=== PATIENT | female | born 2000 | race Two or more races ===

== ENCOUNTER 2023-04-01 15:33 | Inpatient (IN) | payer OTHER ==
[~2023-04-01] VITALS: Ht 165.1 cm; Wt 84.9 kg
[2023-04-01] MEDS ORDERED: HYDROcodone-ACET 5/325MG TAB PO PRN (19:30)
[2023-04-01] MEDS ORDERED: MORPHINE SULFATE INJ 2 MG/ml SYRG IV PRN (19:30)
[2023-04-01] MEDS ORDERED: ACETAMINOPHEN 325 MG TAB PO PRN (19:30)
[2023-04-01] MEDS ORDERED: NITROGLYCERIN 0.4 MG SL TAB SL PRN (19:30)
[2023-04-01] MEDS ORDERED: DOCUSATE SOD 100 MG CAP PO PRN (19:30)
[2023-04-01 19:42] VITALS: BP 118/65; PULSE 110; RESP 18; TEMP 98.1; O2SAT 97
[2023-04-01 20:00] VITALS: PULSE 110; RESP 18; O2SAT 97
[2023-04-01 20:20] LABS: Basophils # (auto) 0 10 ^3/uL (0-0.2); Basophils % (auto) 0.2 % (0.0-2.0); Eosinophils # (auto) 0 10 ^3/uL (0-0.8); Eosinophils % (auto) 0.3 % (0.0-7.0); Hematocrit 34.8 % (36.0-46.0); Hemoglobin 11.6 g/dL (12.2-16.2); Lymphocytes # (auto) 3.6 10 ^3/uL (0.4-5.4); Lymphocytes % (auto) 42.7 % (10.0-50.0); Mean Corpuscular Hemoglobin 28.1 pg (28.0-32.0); Mean Corpuscular Hgb Conc. 33.3 g/dL (32.0-36.0); Mean Corpuscular Volume 84.6 fL (80.0-100.0); Monocytes # (auto) 1.3 10 ^3/uL (0-1.3); Monocytes % (auto) 15.4 % (0.0-12.0); Neutrophils # (auto) 3.5 10 ^3/uL (1.6-8.6); Neutrophils % (auto) 41.4 % (37.0-80.0); Nucleated Red Blood Cells % 0.1 %; Red Blood Cells 4.11 10^6/uL (4.0-5.20); Red Cell Distribution Width 12.9 % (11.8-14.3); White Blood Cell 8.4 10^3/uL (4.4-10.8)
[2023-04-01 20:40] LABS: Alanine Aminotransferase 23 U/L (7-40); Albumin 3.4 g/dL (3.2-4.8); Alkaline Phosphatase 51 U/L (46-116); Anion Gap 7 (5-15); Aspartate Aminotransferase 16 U/L (13-40); BUN/Creatinine Ratio 31.3 (10.0-20.0); Bilirubin, Total 0.8 mg/dL (0.2-1.0); Blood Urea Nitrogen 15 mg/dL (9-23); Calcium 9.1 mg/dL (8.7-10.4); Carbon Dioxide 25 mmol/L (20-30); Chloride 107 mmol/L (98-107); Glucose 97 mg/dL (74-106); Potassium 3.8 mmol/L (3.5-5.1); Sodium 139 mmol/L (136-145); Total Protein 5.3 g/dL (5.7-8.2)
[2023-04-01 22:00] VITALS: BP 115/55; PULSE 107; RESP 18; TEMP 97.9; O2SAT 99
[2023-04-01] MEDS: IBUPROFEN 600 MG TAB PO SCH (22:00)
[2023-04-01] MEDS: COLCHICINE 0.6 MG CAP PO SCH (22:00)
[2023-04-01] MEDS: ENOXAPARIN SOD 100 MG/1 ML SYRINGE SC SCH (22:00)
[2023-04-02] VITALS (8 sets, daily range): BP systolic 106–124; BP diastolic 51–64; PULSE 90–130; RESP 16–18; TEMP 97.7–98; O2SAT 96–99
[2023-04-02 05:48] LABS: Hematocrit 33.4 % (36.0-46.0); Hemoglobin 11.1 g/dL (12.2-16.2); Mean Corpuscular Hemoglobin 28.5 pg (28.0-32.0); Mean Corpuscular Hgb Conc. 33.3 g/dL (32.0-36.0); Mean Corpuscular Volume 85.4 fL (80.0-100.0); Red Blood Cells 3.91 10^6/uL (4.0-5.20); Red Cell Distribution Width 12.7 % (11.8-14.3); White Blood Cell 4.8 10^3/uL (4.4-10.8)
[2023-04-02] MEDS: IBUPROFEN 600 MG TAB PO SCH ×3 (06:00→21:55)
[2023-04-02 06:02] LABS: Band Neutrophils % (manual) 0; Basophils % (manual) 0 (0.0-2.0); Blast Cells 0; Eosinophils % (manual) 0 (0-7); Metamyelocytes % 0; Myelocytes % 0; Promyelocytes % 0
[2023-04-02 06:14] LABS: Alanine Aminotransferase 22 U/L (7-40); Albumin 3.5 g/dL (3.2-4.8); Alkaline Phosphatase 47 U/L (46-116); Anion Gap 8 (5-15); Aspartate Aminotransferase 22 U/L (13-40); BUN/Creatinine Ratio 21.3 (10.0-20.0); Blood Urea Nitrogen 10 mg/dL (9-23); Calcium 9.4 mg/dL (8.5-10.1); Carbon Dioxide 25 mmol/L (20-30); Chloride 108 mmol/L (98-107); Cholesterol 81 mg/dL (< 200); Glucose 84 mg/dL (74-106); HDL Cholesterol 41 mg/dL (40-59); LDL Cholesterol 23 mg/dL (< 100); Potassium 3.8 mmol/L (3.5-5.1); Sodium 141 mmol/L (136-145); Triglycerides 86 mg/dL (< 150)
[2023-04-02 06:15] LABS: Total Protein 5.5 g/dL (5.7-8.2)
[2023-04-02 07:27] LABS: Lymphocytes % (manual) 56 (10.0-50.0); Monocytes % (manual) 14 (0-12); Reactive Lymphocytes 4
[2023-04-02 07:28] LABS: Platelet Estimate Adequate
[2023-04-02 09:26] LABS: Erythrocyte Sedimentation Rate 12 mm/hr (0-20)
[2023-04-02] MEDS: ENOXAPARIN SOD 100 MG/1 ML SYRINGE SC SCH ×2 (10:20→21:55)
[2023-04-02] MEDS: COLCHICINE 0.6 MG CAP PO SCH ×2 (10:20→21:55)
[2023-04-02 11:17] LABS: Urine Epithelial Cast None Seen /hpf (<5)
[2023-04-02 11:30] LABS: Urine Bacteria FEW /hpf (None Seen); Urine Blood Negative /uL (Negative); Urine Clarity Clear (Clear); Urine Color Yellow (Yellow); Urine Hyaline Cast FEW /lpf (0 - 2); Urine Protein, UAD TRACE (Negative); Urine Urobilinogen Normal (Negative); Urine WBC 2 /hpf (0 - 5); Urine pH 6.5 (5.0-8.0)
[2023-04-02 11:45] LABS: Amphetamine Screen, Urine Neg (NEGATIVE); Barbiturate Scree,Urine Neg (NEGATIVE); Benzodiazephine Screen, Urine Neg (NEGATIVE); Cannabinoid Screen, Urine Neg (NEGATIVE); Cocaine Screen, Urine Neg (NEGATIVE); Opiate Scree,Urine Neg (NEGATIVE); Phencyclidine Screen, Urine Neg (NEGATIVE)
[2023-04-02] MEDS: ONDANSETRON HCL 4 MG/2 ML VIAL IV PRN (20:19)
[2023-04-02] MEDS ORDERED: CARVEDILOL 3.125 MG TAB PO SCH (22:00)
[2023-04-03] VITALS (7 sets, daily range): BP systolic 105–128; BP diastolic 49–69; PULSE 63–95; RESP 17–18; TEMP 97.9–98.4; O2SAT 97–100
[2023-04-03] MEDS: IBUPROFEN 600 MG TAB PO SCH ×3 (05:51→21:02)
[2023-04-03 06:53] LABS: Hematocrit 35.1 % (36.0-46.0); Hemoglobin 11.6 g/dL (12.2-16.2); Mean Corpuscular Hemoglobin 28.2 pg (28.0-32.0); Mean Corpuscular Hgb Conc. 33.1 g/dL (32.0-36.0); Mean Corpuscular Volume 85.2 fL (80.0-100.0); Red Blood Cells 4.12 10^6/uL (4.0-5.20); Red Cell Distribution Width 12.5 % (11.8-14.3); White Blood Cell 5.8 10^3/uL (4.4-10.8)
[2023-04-03 07:08] LABS: Anion Gap 8 (5-15); Carbon Dioxide 25 mmol/L (20-30); Chloride 109 mmol/L (98-107); Potassium 4.1 mmol/L (3.5-5.1); Sodium 142 mmol/L (136-145)
[2023-04-03 07:10] LABS: Calcium 9.6 mg/dL (8.5-10.1)
[2023-04-03 07:14] LABS: BUN/Creatinine Ratio 20.8 (10.0-20.0); Band Neutrophils % (manual) 0; Basophils % (manual) 0 (0.0-2.0); Blast Cells 0; Blood Urea Nitrogen 10 mg/dL (9-23); Glucose 85 mg/dL (74-106); Metamyelocytes % 0; Myelocytes % 0; Promyelocytes % 0
[2023-04-03] MEDS: COLCHICINE 0.6 MG CAP PO SCH ×2 (09:27→21:02)
[2023-04-03] MEDS ORDERED: PANTOPRAZOLE 40 MG TAB PO SCH (10:00)
[2023-04-03 10:23] LABS: Eosinophils % (manual) 1 (0-7); Lymphocytes % (manual) 50 (10.0-50.0); Monocytes % (manual) 12 (0-12); Platelet Estimate Adequate; Reactive Lymphocytes 16
[2023-04-03] MEDS ORDERED: ATENOLOL 25 MG TAB PO ONE (11:00)
[2023-04-03] MEDS ORDERED: methIMAzole 5 MG TAB PO ONE (11:00)
[2023-04-03] MEDS: methIMAzole 5 MG TAB PO SCH (21:02)
[2023-04-04] VITALS (7 sets, daily range): BP systolic 104–113; BP diastolic 55–61; PULSE 67–89; RESP 17–20; TEMP 98–98.3; O2SAT 97–100
[2023-04-04] MEDS: IBUPROFEN 600 MG TAB PO SCH ×3 (06:32→20:50)
[2023-04-04] MEDS: methIMAzole 5 MG TAB PO SCH ×3 (06:33→20:49)
[2023-04-04 09:00] LABS: Basophils # (auto) 0 10 ^3/uL (0-0.2); Basophils % (auto) 0.3 % (0.0-2.0); Eosinophils # (auto) 0.1 10 ^3/uL (0-0.8); Eosinophils % (auto) 2.2 % (0.0-7.0); Hematocrit 39.3 % (36.0-46.0); Hemoglobin 13.3 g/dL (12.2-16.2); Lymphocytes # (auto) 1.7 10 ^3/uL (0.4-5.4); Lymphocytes % (auto) 40.1 % (10.0-50.0); Mean Corpuscular Hemoglobin 28.4 pg (28.0-32.0); Mean Corpuscular Hgb Conc. 33.8 g/dL (32.0-36.0); Mean Corpuscular Volume 83.9 fL (80.0-100.0); Monocytes # (auto) 0.4 10 ^3/uL (0-1.3); Monocytes % (auto) 8.5 % (0.0-12.0); Neutrophils % (auto) 48.9 % (37.0-80.0); Nucleated Red Blood Cells % 0.2 %; Red Blood Cells 4.68 10^6/uL (4.0-5.20); Red Cell Distribution Width 12.8 % (11.8-14.3); White Blood Cell 4.2 10^3/uL (4.4-10.8)
[2023-04-04] MEDS: ATENOLOL 25 MG TAB PO SCH (09:01)
[2023-04-04] MEDS: COLCHICINE 0.6 MG CAP PO SCH ×2 (09:01→20:49)
[2023-04-04] MEDS: PANTOPRAZOLE 40 MG TAB PO SCH (09:02)
[2023-04-04 09:11] LABS: Alanine Aminotransferase 74 U/L (7-40); Albumin 3.9 g/dL (3.2-4.8); Alkaline Phosphatase 53 U/L (46-116); Anion Gap 6 (5-15); Aspartate Aminotransferase 84 U/L (13-40); Bilirubin, Total 0.6 mg/dL (0.2-1.0); Blood Urea Nitrogen 9 mg/dL (9-23); Calcium 9.9 mg/dL (8.5-10.1); Carbon Dioxide 27 mmol/L (20-30); Chloride 106 mmol/L (98-107); Glucose 86 mg/dL (74-106); Potassium 4.1 mmol/L (3.5-5.1); Sodium 139 mmol/L (136-145)
[2023-04-04 09:12] LABS: Total Protein 6.4 g/dL (5.7-8.2)
[2023-04-05 05:00] VITALS: BP 108/51; PULSE 87; RESP 20; TEMP 98.3; O2SAT 96
[2023-04-05] MEDS: IBUPROFEN 600 MG TAB PO SCH ×2 (05:41→13:37)
[2023-04-05] MEDS: methIMAzole 5 MG TAB PO SCH ×2 (05:42→13:37)
[2023-04-05 07:02] LABS: Basophils # (auto) 0 10 ^3/uL (0-0.2); Basophils % (auto) 0.1 % (0.0-2.0); Eosinophils # (auto) 0.2 10 ^3/uL (0-0.8); Eosinophils % (auto) 2.9 % (0.0-7.0); Hematocrit 37.3 % (36.0-46.0); Hemoglobin 12.8 g/dL (12.2-16.2); Lymphocytes # (auto) 2.7 10 ^3/uL (0.4-5.4); Lymphocytes % (auto) 48.6 % (10.0-50.0); Mean Corpuscular Hemoglobin 28.6 pg (28.0-32.0); Mean Corpuscular Hgb Conc. 34.2 g/dL (32.0-36.0); Mean Corpuscular Volume 83.6 fL (80.0-100.0); Monocytes # (auto) 0.6 10 ^3/uL (0-1.3); Monocytes % (auto) 10.3 % (0.0-12.0); Neutrophils # (auto) 2.2 10 ^3/uL (1.6-8.6); Neutrophils % (auto) 38.1 % (37.0-80.0); Red Blood Cells 4.46 10^6/uL (4.0-5.20); Red Cell Distribution Width 12.2 % (11.8-14.3); White Blood Cell 5.6 10^3/uL (4.4-10.8)
[2023-04-05 07:12] LABS: Free T3 9.07 pg/mL (2.3-4.2); T3 Total 3.13 ng/mL (0.60-1.81)
[2023-04-05 07:16] LABS: Alanine Aminotransferase 70 U/L (7-40); Albumin 3.6 g/dL (3.2-4.8); Alkaline Phosphatase 48 U/L (46-116); Anion Gap 9 (5-15); Aspartate Aminotransferase 62 U/L (13-40); BUN/Creatinine Ratio 20.8 (10.0-20.0); Blood Urea Nitrogen 10 mg/dL (9-23); Calcium 9.7 mg/dL (8.5-10.1); Carbon Dioxide 24 mmol/L (20-30); Chloride 106 mmol/L (98-107); Glucose 82 mg/dL (74-106); Potassium 3.9 mmol/L (3.5-5.1); Sodium 139 mmol/L (136-145)
[2023-04-05 07:17] LABS: Bilirubin, Total 0.4 mg/dL (0.2-1.0); Total Protein 5.9 g/dL (5.7-8.2)
[2023-04-05 08:00] VITALS: BP 114/58; PULSE 70; PULSE 72; RESP 18; TEMP 98.6; O2SAT 97
[2023-04-05 09:00] VITALS: BP 114/58; PULSE 72; RESP 18; TEMP 98.6; O2SAT 97
[2023-04-05] MEDS: PANTOPRAZOLE 40 MG TAB PO SCH (09:37)
[2023-04-05] MEDS: COLCHICINE 0.6 MG CAP PO SCH (09:37)
[2023-04-05] MEDS: ATENOLOL 25 MG TAB PO SCH (09:39)
[2023-04-05 12:48] VITALS: BP 120/61; PULSE 76; RESP 18; TEMP 98.3; O2SAT 98
[2023-04-05] MEDS: ONDANSETRON HCL 4 MG/2 ML VIAL IV PRN (13:37)
[2023-04-05 16:42] VITALS: BP 111/65; PULSE 77; RESP 20; TEMP 98.3; O2SAT 98
[2023-04-05] MEDS ORDERED: GABA-339 PO (18:08)
[2023-04-05 18:20] VITALS: BP 111/65; PULSE 79; RESP 17; TEMP 97.9; O2SAT 98
[2023-04-06 11:08] LABS: Thyrotropin Receptor Antibody 18.7 IU/L (0.00-1.75)
[2023-04-08 09:10] LABS: Hepatitis B Surface Antigen Negative (Negative)
[2023-04-08 09:31] LABS: Hepatitis A Ab IgM Negative
[2023-04-08 09:32] LABS: Hepatitis B Core IgM Negative; Hepatitis C Antibody Negative (Negative)
[2023-04-09 11:21] LABS: Thyroid Stimulating Immunoglob 17.5 IU/L (0.00-0.55)
[2023-04-09 19:06] LABS: Thyroid Stimulating Immunoglob 18.6 IU/L (0.00-0.55)
== END 2023-04-05 19:36 | disposition home or self-care (01) | DRG 643 ==
LOC: UNDOADMIN 18:49 → TELE-EAST 18:49
PROVIDERS: ADMIT Internal Medicine; ATTEND Internal Medicine
DX: E05.00 Thyrotoxicosis with diffuse goiter without thyrotoxic crisis or storm (principal); I21.A1 Myocardial infarction type 2; G89.29 Other chronic pain; E66.9 Obesity, unspecified; Z83.3 Family history of diabetes mellitus; Z82.49 Family history of ischemic heart disease and other diseases of the circulatory system; Z68.31 Body mass index [BMI] 31.0-31.9, adult; R74.01 Elevation of levels of liver transaminase levels
CPT/HCPCS: 36415; 71045; 76536; 80048; 80053; 80061; 80074; 80307; 81001; 81025; 83605; 83615; 84436; 84439; 84443; 84445; 84480; 84481; 84484; 85007; 85025; 85027; 85379; 85652; 86141; 93005; 93306; 93970; G0378; J2405